=== PATIENT | female | born 1990 ===

== ENCOUNTER 2016-10-21 12:53 | Inpatient (IN) | payer MEDICAID, OTHER ==
--- NOTE | 2016-10-21 13:12 | ED PDOC ---
HPI: Psych/Substance Abuse Time Seen by Provider: 10/21/16 13:01 Chief Complaint (Nursing): Psychiatric Evaluation Chief Complaint (Provider): EDP History Per: Patient, EMS Additional Complaint(s): Patient arrives via ambulance for crisis evaluation. Patient was pulled over by Police and the car she was driving was stolen. She was brought to police precinct and her arrest was processed. EMS then brought patient to ED for psych eval as she is displaying bizarre behavior. Upon arrival patient is not allowing for vital signs to be obtained and she is not answering any questions. Past Medical History Reviewed: Historical Data - Medical History PMH: Anxiety, Bipolar Disorder, Paranoia, Schizophrenia - Family History Family History: States: No Known Family Hx - Living Arrangements Living Arrangements: With Family - Home Medications Home Medications: Ambulatory Orders Medication Instructions Recorded LORazepam [Ativan] 0.5 mg PO BID #30 tab 09/28/15 Sneads Carbonate [Sneads 300 mg PO TID #21 cap 09/28/15 Carbonate 300MG] Risperidone [Risperdal M-TAB] 3 mg PO AMHS #45 odt 09/28/15 - Allergies Allergies/Adverse Reactions: Allergies Allergy/AdvReac Type Severity Reaction Status Date / Time No Known Allergies Allergy Verified 10/21/16 12:55 Review of Systems ROS Statement: Except As Marked, All Systems Reviewed And Found Negative Psych: Positive for: Other (EDP) Physical Exam - Reviewed Nursing Documentation Reviewed: Yes Vital Signs Reviewed: Yes - Physical Exam Appears: Positive for: Well, Non-toxic, No Acute Distress Skin: Negative for: Rash Eye Exam: Positive for: Normal appearance, EOMI, PERRL Cardiovascular/Chest: Positive for: Regular Rate, Rhythm Respiratory: Positive for: Normal Breath Sounds Extremity: Positive for: Normal ROM Neurologic/Psych: Positive for: Alert, Oriented, Mood/Affect (bizarre affect, does not answer questions appropriately) - Laboratory Results Result Diagrams: 10/21/16 15:35 10/21/16 15:35 - ECG O2 Sat by Pulse Oximetry: 98 Pulse Ox Interpretation: Normal Medical Decision Making Medical Decision Makin25 year old EDP Plan: Admit to ED observation 1:1 bedside observation CBC CMP BAL UDS UA Crisis eval ED OBSERVATION Date of observation admission: 10/21/16 Time of observation admission: 13:13 - Observation admission statement Patient is being placed in observation because:: Acute psychosis, EDP - Goals of Observation Goals of observation are:: Monitor patient for her safety and safety of ED staff, pending crisis eval - Progress Note Progress Note: 10/21/16 13:20 Patient arrives via ambulance, she is yelling at ED staff and refusing to change into gowns. Patient yells louder every time someone tries to talk to her. Patient was placed in 4 point restraints for her safety and the safety of ED staff. She was medicated with 2 mg IM ativan and 5 mg IM haldol. 10/21/16 14:20 Patient is asleep, arousable, vital signs stable, no airway compromise, restraints removed. 10/21/16 15:10 Patient is calm and cooperative, states she feels sleepy, vital signs are stable 10/21/16 17:45 Patient is asleep, arousable, vital signs are stable 10/21/16 19:06 Patient was seen at bedside by crisis counselor. As per counselor and psychiatrist emissions testing and repair technician, Dr. Ratliff, patient does meet criteria for admission. She agrees to stay and signed herself in. 10/21/16 20:33 Patient is medically stable for psychiatric admission Disposition - Clinical Impression Clinical Impression: Schizophrenia - Patient ED Disposition Is Patient to be Admitted: Yes - Disposition Disposition Time: 20:33 Condition: FAIR - Pt Status Changed To: Hospital Disposition Of: Inpatient - Admit Certification Admit to Inpatient:: After my assessment, the patient will require hospitalization for at least two midnights. This is because of the severity of symptoms shown, intensity of services needed, and/or the medical risk in this patient being treated as an outpatient. - POA Present On Arrival: None Results - Lab Results Lab Results: 10/21/16 10/21/16 10/21/16 19:58 19:58 15:35 WBC RBC Hgb Hct MCV MCH MCHC RDW Plt Count MPV Neut % (Auto) Lymph % (Auto) Larue % (Auto) Eos % (Auto) Baso % (Auto) Neut # Lymph # Larue # Eos # Baso # Sodium 143 Potassium 4.1 Chloride 106 Carbon Dioxide 26 Anion Gap 15 BUN 11 Creatinine 0.7 Est GFR ( Amer) > 60 Est GFR (Non-Af Amer) > 60 Random Glucose 97 Calcium 9.3 Total Bilirubin 0.2 AST 24 ALT 29 Alkaline Phosphatase 58 Total Protein 7.7 Albumin 4.2 Globulin 3.5 Albumin/Globulin Ratio 1.2 Urine Color Yellow Urine Clarity Cloudy Urine pH 6.0 Ur Specific [place] 1.030 Urine Protein 30 Urine Glucose (UA) Neg Urine Ketones Negative Urine Blood Negative Urine Nitrate Negative Urine Bilirubin Negative Urine Urobilinogen 0.2-1.0 Ur Leukocyte Esterase Trace Urine RBC (Auto) 3 Urine Microscopic WBC 3 Ur Squamous Epith Cells 2 Urine Bacteria Rare Urine Opiates Screen Negative Urine Methadone Screen Negative Ur Barbiturates Screen Negative Ur Phencyclidine Scrn Negative Ur Amphetamines Screen Negative U Benzodiazepines Scrn Negative U Oth Cocaine Metabols Negative U Cannabinoids Screen Positive H Alcohol, Quantitative < 10 10/21/16 15:35 WBC 7.5 RBC 4.03 Hgb 11.8 L Hct 35.4 MCV 88.0 MCH 29.2 MCHC 33.2 RDW 14.1 Plt Count 235 MPV 9.0 Neut % (Auto) 52.6 Lymph % (Auto) 35.7 Larue % (Auto) 9.4 Eos % (Auto) 1.5 Baso % (Auto) 0.8 Neut # 4.0 Lymph # 2.7 Larue # 0.7 Eos # 0.1 Baso # 0.1 Sodium Potassium Chloride Carbon Dioxide Anion Gap BUN Creatinine Est GFR ( Amer) Est GFR (Non-Af Amer) Random Glucose Calcium Total Bilirubin AST ALT Alkaline Phosphatase Total Protein Albumin Globulin Albumin/Globulin Ratio Urine Color Urine Clarity Urine pH Ur Specific [place] Urine Protein Urine Glucose (UA) Urine Ketones Urine Blood Urine Nitrate Urine Bilirubin Urine Urobilinogen Ur Leukocyte Esterase Urine RBC (Auto) Urine Microscopic WBC Ur Squamous Epith Cells Urine Bacteria Urine Opiates Screen Urine Methadone Screen Ur Barbiturates Screen Ur Phencyclidine Scrn Ur Amphetamines Screen U Benzodiazepines Scrn U Oth Cocaine Metabols U Cannabinoids Screen Alcohol, Quantitative
[2016-10-21 15:46] LABS: BASO # 0.1 K/uL (0.0-0.2); BASO % 0.8 % (0.0-2.0); EOS # 0.1 K/uL (0.0-0.7); EOS % 1.5 % (0.0-4.0); HEMOGLOBIN 11.8 g/dL (12.0-16.0); LYMPH # 2.7 K/uL (1.0-4.3); LYMPH % 35.7 % (20.0-40.0); MEAN CORPUSCULAR HEMOGLOBIN 29.2 pg (27.0-31.0); MEAN CORPUSCULAR HGB CONC 33.2 g/dL (33.0-37.0); MONO # 0.7 K/uL (0.0-0.8); MONO % 9.4 % (0.0-10.0); NEUT % 52.6 % (50.0-75.0); NRBC % 0.1 % (0.0-0.0); RBC 4.03 Mil/uL (3.80-5.20); RED CELL DISTRIBUTION WIDTH 14.1 % (11.5-14.5); WHITE BLOOD COUNT 7.5 K/uL (4.8-10.8)
[2016-10-21 16:05] LABS: ALB/GLOB RATIO 1.2 (1.0-2.1); ALBUMIN 4.2 g/dL (3.5-5.0); ALT/SGPT 29 U/L (9-52); AST/SGOT 24 U/L (14-36); BLOOD UREA NITROGEN 11 mg/dl (7-17); CALCIUM 9.3 mg/dL (8.4-10.2); GFR AFRICAN-AMERICAN > 60; GFR NON-AFRICAN AMERICAN > 60
[2016-10-21 20:14] LABS: SQUAMOUS EPITHIAL 2 /hpf (0-5); URINE BACTERIA RARE (<OCC); URINE BILIRUBIN NEGATIVE (NEGATIVE); URINE BLOOD NEGATIVE (NEGATIVE); URINE CLARITY CLOUDY (Clear); URINE COLOR YELLOW (YELLOW); URINE GLUCOSE (UA) NEG (Normal); URINE LEUKOCYTE ESTERASE TRACE Leu/uL (Negative); URINE NITRATE NEGATIVE (NEGATIVE); URINE PROTEIN 30 mg/dL (NEGATIVE); URINE UROBILINOGEN 0.2-1.0 mg/dL (0.2-1.0)
[2016-10-21 20:17] LABS: BARBITURATES, UR NEGATIVE (NEGATIVE); BENZODIAZEPINES, UR NEGATIVE (NEGATIVE); OPIATES, UR NEGATIVE (NEGATIVE); PHENCYCLIDINE, UR NEGATIVE (NEGATIVE)
[2016-10-21 20:35] VITALS: O2SAT 98
[2016-10-21] MEDS ORDERED: Alum-Mag Hydrox-Simethicone Susp (30 mL) PO PRN (21:36)
[2016-10-21] MEDS ORDERED: Magnesium Hydroxide Susp 30 ml UD PO PRN (21:36)
[2016-10-21] MEDS ORDERED: DiphenhydrAMINE 50 mg/ml Inj IM PRN ×2 (21:36→21:41)
[2016-10-21] MEDS ORDERED: DiphenhydrAMINE 50 mg/ml Inj ONE (21:47)
[2016-10-21 22:34] VITALS: RESP 20
--- NOTE | 2016-10-22 08:45 | PCM.PSYCH ---
Initial Psychiatric Evaluation - Initial Psychiatric Evaluation Type of Admission: Voluntary Legal Status: Capacity Chief Complaint (in patient's own words): i just need to rest, i was exhausted Patient's Reaction to Hospitalization: ambivalent History of Present Illness and Precipitating Events: 25 yo female with history of schizoaffective disorder who was brought to the ER by police after driving stolen vehicle. she was bizarre and combative in the ER and allowed to sign into the hospital. upon arrival to the 3np floor she was combative and threatening/attempting to strike the staff and rn on the unit. she is currently on a 1:1 supervision. she states she is only here because of bringing herself into the ER because she was exhausted. she states she was not sleeping and feels "high" she states "i am the most intelligent person in the world and I need to sleep" she states she will not take lithium/depakote or risperdal. she states- "give me what i got last night, that helps- i want benadryl, ativan and haldol." initially she states she is "excited about my discharge" but then she agrees to stay for "a few days" she states she was at [facility] recently after being transferred there from another facility. she states she may have ICMS, but "i don't want that anymore." she is vague about other events leading up to the hospitalization and cannot states where she lives or if she gets any outpt treatment. Current Medications: Active Medications Generic Name Dose Route Start Last Admin Trade Name Freq PRN Reason Stop Dose Admin Acetaminophen 650 mg 10/21/16 21:36 Tylenol 325mg Tab PO Q4 PRN pain 1-7,headache,dizziness Al Hydrox/Mg Hydrox/Simethicone 30 ml 10/21/16 21:36 Maalox Plus 30 Ml PO Q4 PRN Dyspepsia Diphenhydramine HCl 50 mg 10/21/16 21:36 10/21/16 22:00 Benadryl IM 50 mg Q6 PRN Administration Extrapyramidal S/S Unable PO Diphenhydramine HCl 50 mg 10/21/16 21:36 Benadryl PO Q6 PRN Extrapyramidal Symptoms Diphenhydramine HCl 50 mg 10/21/16 22:15 Benadryl PO HS PRN Sleep Diphenhydramine HCl 25 mg 10/22/16 09:00 Benadryl PO BID CLARITA Haloperidol 5 mg 10/21/16 21:36 Haldol PO Q4 PRN Agitation Haloperidol 5 mg 10/22/16 09:00 Haldol PO BID CLARITA Haloperidol Lactate 5 mg 10/21/16 21:36 10/21/16 22:00 Haldol IM 5 mg Q4 PRN Administration Agitation, Unable to Take PO Lorazepam 2 mg 10/21/16 21:41 Ativan PO Q4 PRN Anxiety/Agitation Lorazepam 2 mg 10/21/16 21:36 10/21/16 22:00 Ativan IM 2 mg Q4 PRN Administration Anxiety/Agitation,Unable PO Lorazepam 1 mg 10/22/16 09:00 Ativan PO TID CLARITA Magnesium Hydroxide 30 ml 10/21/16 21:36 Milk Of Magnesia PO HS PRN Constipation last known meds- risperdal, lithium. pt may have been getting risperdal consta recently per chart Past Psychiatric History - Past Psychiatric History Previous Treatment History: Inpatient Prior Professional Help: multiple voluntary/involuntary admissions History of Abuse: denies at this time History of ETOH/Drug Use: "i smoke pot, that's all you will find" denies other substance use History of Family Illness: denies Pertinent Medical Hx (Current Medical&Sleep Prob, Allergies): Allergies Allergy/AdvReac Type Severity Reaction Status Date / Time No Known Allergies Allergy Verified 10/21/16 12:55 LORazepam [Ativan] 0.5 mg PO BID #30 tab 09/28/15 Force Carbonate [Force Carbonate 300MG] 300 mg PO TID #21 cap 09/28/15 Risperidone [Risperdal M-TAB] 3 mg PO AMHS #45 odt 09/28/15 Review of Systems - Psychiatric Psychiatric: As Per HPI, Abnormal Sleep Pattern, Behavioral Changes, Difficulty Concentrating, Irritability, Mood Swings Additional comments: denies a/v hallucinations at this time Mental Status Examination - Personal Presentation Personal Presentation: Looks stated age Additional comments: unkempt - Affect Affect: Broad - Motor Activity Motor Activity: Calm - Reliability in Providing Information Reliability in Providing Information: Poor, due to alteration in thoughts, Poor , due to altered mood - Speech Speech: Organized - Mood Mood: Euphoric - Formal Thought Process Formal Thought Process: Delusions, Paranoia, Loosening of associations, Flight of ideas - Hallucinations/Delusions Delusions: Granduer - Obsessions/Compulsions Obsessions: No Compulsions: No - Cognitive Functions Orientation: Person, Place, Situation, Time Sensorium: Alert Attention/Concentration: Easily distracted Abstract Thinking: [place] Estimate of Intelligence: Average Judgement: Intact, as evidence by: Insight regarding need for hospitalization Memory: Recent impaired, as evidenced by: Other (not accurately portraying recent events) - Risk Risk: Suicidal (denies any plans or intent currently), Homicidal (aggressive behaviors on unit), Diminished functioning - Strength & Assets Inventory Strength & Assets Inventory: Life experience - Limitations Limitations: Other (non-adherence) DSM 5 DX - DSM 5 DSM 5 Diagnosis: schizoaffective disorder, bipolar type - Recommended/Plan of Treatment Treatment Recommendations and Plan of Treatment: admit to 3np for safety and observation gather collateral information provide supportive therapy adjust medications- will start haldol/ativan/benadryl at pt's request. will try to add a mood stabilizer and or replace haldol with risperdal. hospitalist consult disposition planning Projected ELOS: 3-5 days Prognosis: fair Discharge Plan and Discharge Criteria: may need screening for involuntary hospitalization if aggression continues - Smoking Cessation Smoking Cessation Initiated: No Reason for not providing: declines
[2016-10-22 09:17] VITALS: BP 134/81; PULSE 98; TEMP 96.8
--- NOTE | 2016-10-23 09:34 | PCM.PYCHPN ---
Psychiatric Progress Note - Psychiatric Progress Note Patient seen today, length of contact: i am the one who decides Patient Chief Complaint: i like the medications Problems Identified/Issues Discussed: pt initially refused meds this am, but then took. her thought are disorganized and she is expressing ambivalence about taking meds and staying in the hospital. she told the RN that she wants to take the medications sleep so she doesn't hear the voices. she denies side effects. Medication Change: No Medical Record Reviewed: Yes Mental Status Examination - Cognitive Function Orientation: Person, Place, Situation, Time Memory: Intact Attention: Poor Concentration: Poor Association: Loose Fund of Knowledge: WNL Decription of patient's judgement and insights: superficial insight - Mood Mood: Anxious - Affect Affect: Broad - Speech Speech: Loud - Formal Thought Process Formal Thought Process: Delusions, Paranoia, Loosening of associations Psychotic Thoughts and Behaviors: pt paranoid "why do you want to make everyone happy but me" - Suicidal Ideation Suicidal Ideation: No - Homicidal Ideation Homicidal Ideation: No Goal/Treatment Plan - Goal/Treatment Plan Need for Continued Stay: Remain at risks for inpatient hospitalization, Discharge may exacerbated symptoms, Severe functional impairment Progress Toward Problem(s) and Goals/Treatment Plan: schizoaffective disorder, bipolar will continue current treatment t/c increasing haldol to 5/10mg discontinue 1:1 supervision disposition planning Estimated Date of D/C: 10/28/16
--- NOTE | 2016-10-23 19:51 | CP.PCM.CON ---
History of Present Illness - History of Present Illness History of Present Illness: ATTEMPTED TO SEE PATIENT, REFUSES TO ANSWER QUESTIONS OR HAVE PHYSICAL EXAM AT THIS TIME. DISCUSSED WITH NURSING STAFF. Past Patient History - Past Social History Smoking Status: unobtainab - CARDIAC Hx Cardiac Disorders: No Hx Hypertension: No - PULMONARY Hx Respiratory Disorders: No Hx Tuberculosis: No - NEUROLOGICAL Hx Neurological Disorder: No Hx Seizures: No - HEENT Hx HEENT Problems: No - RENAL Hx Chronic Kidney Disease: No - ENDOCRINE/METABOLIC Hx Endocrine Disorders: No - HEMATOLOGICAL/ONCOLOGICAL Hx Blood Disorders: No Hx Human Immunodeficiency Virus (HIV): No - INTEGUMENTARY Hx Dermatological Problems: No - MUSCULOSKELETAL/RHEUMATOLOGICAL Hx Musculoskeletal Disorders: No - GASTROINTESTINAL Hx Gastrointestinal Disorders: No - GENITOURINARY/GYNECOLOGICAL Hx Genitourinary Disorders: No Hx Sexually Transmitted Disorders: No - PSYCHIATRIC Hx Anxiety: Yes Hx Bipolar Disorder: Yes Hx Schizophrenia: Yes Hx Substance Use: No (pt denied) - SURGICAL HISTORY Hx Surgeries: No - ANESTHESIA Hx Anesthesia: No Meds Allergies/Adverse Reactions: Allergies Allergy/AdvReac Type Severity Reaction Status Date / Time No Known Allergies Allergy Verified 10/21/16 12:55 - Medications Medications: Current Medications Acetaminophen (Tylenol 325mg Tab) 650 mg PO Q4 PRN PRN Reason: pain 1-7,headache,dizziness Al Hydrox/Mg Hydrox/Simethicone (Maalox Plus 30 Ml) 30 ml PO Q4 PRN PRN Reason: Dyspepsia Diphenhydramine HCl (Benadryl) 50 mg IM Q6 PRN PRN Reason: Extrapyramidal S/S Unable PO Last Admin: 10/21/16 22:00 Dose: 50 mg Diphenhydramine HCl (Benadryl) 50 mg PO Q6 PRN PRN Reason: Extrapyramidal Symptoms Diphenhydramine HCl (Benadryl) 50 mg PO HS PRN PRN Reason: Sleep Last Admin: 10/22/16 22:14 Dose: 50 mg Diphenhydramine HCl (Benadryl) 25 mg PO BID CLARITA Last Admin: 10/23/16 17:43 Dose: 25 mg Haloperidol (Haldol) 5 mg PO Q4 PRN PRN Reason: Agitation Last Admin: 10/22/16 22:14 Dose: 5 mg Haloperidol (Haldol) 5 mg PO AMHS CLARITA Haloperidol Lactate (Haldol) 5 mg IM Q4 PRN PRN Reason: Agitation, Unable to Take PO Last Admin: 10/21/16 22:00 Dose: 5 mg Lorazepam (Ativan) 2 mg IM Q4 PRN PRN Reason: Anxiety/Agitation,Unable PO Last Admin: 10/21/16 22:00 Dose: 2 mg Lorazepam (Ativan) 1 mg PO AMHS CLARITA Lorazepam (Ativan) 1 mg PO Q4 PRN PRN Reason: Anxiety Magnesium Hydroxide (Milk Of Magnesia) 30 ml PO HS PRN PRN Reason: Constipation Results - Vital Signs Recent Vital Signs: Last Vital Signs Temp 96.8 F L 10/22/16 09:16 Pulse 98 H 10/22/16 09:16 Resp 20 10/22/16 09:16 BP 134/81 10/22/16 09:16 Pulse Ox 98 10/21/16 20:34 - Labs Result Diagrams: 10/21/16 15:35 10/21/16 15:35
--- NOTE | 2016-10-24 12:53 | PCM.PYCHDC ---
Mental Status Examination - Mental Status Examination Orientation: Person, Place, Situation, Time Memory: Intact Mood: Anxious Affect: Blunted Speech: Appropriate Attention: WNL Concentration: WNL Association: Loose Fund of Knowledge: WNL Formal Thought Process: Paranoia, Loosening of associations Description of patient's judgement and insight: superficial insight Psychotic Thoughts and Behaviors: pt paranoid, irritable, disorganized thoughts Suicidal Ideation: No Current Homicidal Ideation?: No Plan: pt is denying any suicidal or homicidal thoughts Discharge Summary - Discharge Note Reason for Hospitalization: pt brought to ER by police for erratic behavior Psychiatric History (includes Medical, Family, Personal Hx): history of schizoaffective disorder Consultations:: List each consultation separately and include: 1. Reason for request. 2. Findings. 3. Follow-up Consultations: seen by hospitalist Summary of Hospital Course include:: 1. Description of specific treatment plan utilized for patients during their course of treatmen. 2. Summarize the time- course for resolution of acute symptoms and/or regressed behaviors. 3. Describe issues identified and worked on during hospitalization. 4. Describe medication utilized. 5. Describe medical problems identified and treated. 6. Reassessment of suicide risk Summary of Hospital Course: 25 yo female with history of schizoaffective disorder who was brought to the ER by police after driving stolen vehicle. she was bizarre and combative in the ER and allowed to sign into the hospital. upon arrival to the 3np floor she was combative and threatening/attempting to strike the staff and rn on the unit. she is currently on a 1:1 supervision. she states she is only here because of bringing herself into the ER because she was exhausted. she states she was not sleeping and feels "high" she states "i am the most intelligent person in the world and I need to sleep" she states she will not take lithium/depakote or risperdal. she states- "give me what i got last night, that helps- i want benadryl, ativan and haldol." initially she states she is "excited about my discharge" but then she agrees to stay for "a few days" she states she was at [facility] recently after being transferred there from another facility. she states she may have ICMS, but "i don't want that anymore." she is vague about other events leading up to the hospitalization and cannot states where she lives or if she gets any outpt treatment. hospital course pt was admitted to [facility] and oriented to the unit. pt was placed on routine safety protocols. pt was started on medications she requested- haldol and benadryl/ativan- as she stated it helped her sleep and stay calm. she took medications as prescribed and allowed sw to contact her bf who was supportive of pt's discharge. she demanded to go home. pt remained disorganized in terms of her thoughts, but was calm and accepting redirections. she was agreeing to take medications and follow up with treatment. we discussed leaving the hospital against medical advice and informed the pt the benefits of staying would be further titration of medications and stabilization of her mood/ psychosis and the risks were continued unstable mood/thoughts/behaviors and chance of rehospitalization. pt chose to leave the hospital against medical advice and was given prescriptions for 2 weeks with one refill of her medications. - Final Diagnosis (DSM 5) Condition upon Discharge: FAIR DSM 5: schizoaffective disorder, bipolar type Disposition: AGAINST MEDICAL ADVICE Follow-up Treatment Plan: follow up with aftercare as directed take medications as prescribed do not use alcohol, tobacco or other illicit substances call 911 if any suicidal or homicidal thoughts Prescriptions/Medication Reconciliation: DiphenhydrAMINE [Benadryl] 25 mg PO BID #30 cap Haloperidol [Haldol] 5 mg PO AMHS #30 tab LORazepam [Ativan] 1 mg PO AMHS #30 tab - Smoking Cessation Smoking Cessation Medication prescribed: No Reason for not providing: declines - Antipsychotic Medications Pt discharged on 2 or more routine antipsychotic medications: No
== END 2016-10-24 13:45 | disposition left against medical advice (07) | DRG 430 ==
LOC: H.ER 12:53 → H.EROBSV 13:10 → OBSVTOIN 20:07 → H.ERHOLD 20:18 → H.PSYCH 21:25
PROVIDERS: ADMIT Psychiatry & Neurology Psychiatry; ATTEND Psychiatry & Neurology Psychiatry
PROC: GZHZZZZ Group Psychotherapy (ICD-10-PCS; principal; 2016-10-21)
PROC: GZ58ZZZ Individual Psychotherapy, Cognitive-Behavioral (ICD-10-PCS; 2016-10-21)
DX: F25.0 Schizoaffective disorder, bipolar type (principal); F12.10 Cannabis abuse, uncomplicated; F41.9 Anxiety disorder, unspecified; Z78.1 Physical restraint status; Z79.899 Other long term (current) drug therapy

== ENCOUNTER 2017-07-04 11:24 | Emergency (ER) | payer MEDICAID, OTHER ==
[2017-07-04 11:57] VITALS: BP 139/90; PULSE 90; RESP 20; TEMP 98; O2SAT 98
--- NOTE | 2017-07-04 12:17 | ED PDOC ---
HPI: Psych/Substance Abuse Time Seen by Provider: 07/04/17 11:30 Chief Complaint (Nursing): Psychiatric Evaluation Chief Complaint (Provider): psych eval History Per: Patient (26 y/o female h/o mental illness on depakote sent by police for psych evaluation. patient states she is homeless and was knocking on mother's door yesterday but her mother did not open. Police was called and patient was placed in police custody. Patient denies any hallucinations/SI/HI. Has no complaints. Denies any alcohol or drug abuse.) Past Medical History Reviewed: Historical Data, Nursing Documentation, Vital Signs Vital Signs: Last Vital Signs Temp 98 F 07/04/17 11:54 Pulse 90 07/04/17 11:54 Resp 20 07/04/17 11:54 BP 139/90 07/04/17 11:54 Pulse Ox 98 07/04/17 11:54 - Medical History PMH: Anxiety, Bipolar Disorder, Paranoia, Schizophrenia Denies: Diabetes, Hepatitis, HIV, HTN, Chronic Kidney Disease, Seizures, Sexually Transmitted Disease - Family History Family History: States: Unknown Family Hx - Immunization History Hx Tetanus Toxoid Vaccination: No Hx Influenza Vaccination: No Hx Pneumococcal Vaccination: No - Home Medications Home Medications: Ambulatory Orders Medication Instructions Recorded No Known Home Med 10/27/16 - Allergies Allergies/Adverse Reactions: Allergies Allergy/AdvReac Type Severity Reaction Status Date / Time No Known Allergies Allergy Verified 07/04/17 11:57 Review of Systems ROS Statement: Except As Marked, All Systems Reviewed And Found Negative Physical Exam - Reviewed Nursing Documentation Reviewed: Yes Vital Signs Reviewed: Yes - Physical Exam Appears: Positive for: Well, Non-toxic, No Acute Distress Head Exam: Positive for: ATRAUMATIC, NORMAL INSPECTION, NORMOCEPHALIC Skin: Positive for: Normal Color, Warm, DRY Eye Exam: Positive for: EOMI, Normal appearance, PERRL ENT: Positive for: Normal ENT Inspection Neck: Positive for: Normal, Painless ROM Cardiovascular/Chest: Positive for: Regular Rate, Rhythm Respiratory: Positive for: CNT, Normal Breath Sounds Gastrointestinal/Abdominal: Positive for: Normal Exam, Bowel Sounds, Soft Back: Positive for: Normal Inspection Extremity: Positive for: Normal ROM Neurologic/Psych: Positive for: Alert, Oriented - ECG O2 Sat by Pulse Oximetry: 98 - Progress ED Course And Treament: Seen by crisis team Has h/o Schizophrenia. Diagnosis of adjustment disorder Cleared by Dr. Cohen for d/c home. Disposition - Clinical Impression Clinical Impression: Adjustment disorder - Patient ED Disposition Is Patient to be Admitted: No - Disposition Referrals: [facility] [Outside] Disposition: Routine/Home Disposition Time: 12:28 Condition: FAIR Instructions: Adjustment Disorder Forms: Application Craft (Welsh)
== END 2017-07-04 12:49 | disposition home or self-care (01) ==
LOC: H.ER 11:24
DX: F43.22 Adjustment disorder with anxiety (principal); F20.9 Schizophrenia, unspecified; F31.9 Bipolar disorder, unspecified; Z59.0 Homelessness

== ENCOUNTER 2017-07-22 17:27 | Emergency (ER) | payer SELFPAY ==
[2017-07-22 17:34] VITALS: O2SAT 99
--- NOTE | 2017-07-22 18:05 | ED PDOC ---
HPI: Psych/Substance Abuse Time Seen by Provider: 07/22/17 17:57 Chief Complaint (Nursing): Psychiatric Evaluation Chief Complaint (Provider): Crisis History Per: Patient History/Exam Limitations: no limitations Onset/Duration Of Symptoms: Days (today) Additional Complaint(s): Pt. found being bizarre on street so police brought pt. to the ED. Pt. not cooperative in ER. Yelling. States her girlfriend is Tahira. She needs depacote. Talking in tangents. Aggressive. Denies any drugs or etoh. Not suicidal or homicidal. Past Medical History Reviewed: Nursing Documentation, Vital Signs Vital Signs: Last Vital Signs Temp 98.0 F 07/22/17 17:28 Pulse 88 07/22/17 17:28 Resp 18 07/22/17 17:28 BP Pulse Ox 99 07/22/17 17:28 - Medical History PMH: Anxiety, Bipolar Disorder, Paranoia, Schizophrenia Denies: Diabetes, Hepatitis, HIV, HTN, Chronic Kidney Disease, Seizures, Sexually Transmitted Disease - Family History Family History: States: Unknown Family Hx - Immunization History Hx Tetanus Toxoid Vaccination: No Hx Influenza Vaccination: No Hx Pneumococcal Vaccination: No - Home Medications Home Medications: Ambulatory Orders Medication Instructions Recorded No Known Home Med 10/27/16 - Allergies Allergies/Adverse Reactions: Allergies Allergy/AdvReac Type Severity Reaction Status Date / Time No Known Allergies Allergy Verified 07/22/17 17:28 Review of Systems ROS Statement: Except As Marked, All Systems Reviewed And Found Negative Psych: Positive for: Psychosis Physical Exam - Reviewed Nursing Documentation Reviewed: Yes Vital Signs Reviewed: Yes - Physical Exam Appears: Positive for: Non-toxic, No Acute Distress Head Exam: Positive for: ATRAUMATIC, NORMAL INSPECTION, NORMOCEPHALIC Skin: Positive for: Normal Color, Warm, DRY Eye Exam: Positive for: EOMI, Normal appearance, PERRL ENT: Positive for: Normal ENT Inspection Neck: Positive for: Normal, Painless ROM Cardiovascular/Chest: Positive for: Regular Rate, Rhythm Respiratory: Positive for: CNT, Normal Breath Sounds Gastrointestinal/Abdominal: Positive for: Normal Exam, Soft. Negative for: Tenderness Back: Positive for: Normal Inspection. Negative for: L CVA Tenderness, R CVA Tenderness Extremity: Positive for: Normal ROM. Negative for: Tenderness, Pedal Edema Neurologic/Psych: Positive for: Alert, Oriented. Negative for: Motor/Sensory Deficits, Facial Droop - ECG O2 Sat by Pulse Oximetry: 99 Pulse Ox Interpretation: Normal - Progress ED Course And Treament: 1809: Will need possible ativan and restraints if pt. has aggressive and psychotic episode. Crisis aware of case. 1854: Stable. Dr. Sims to fu on labs and crisis. Disposition - Clinical Impression Clinical Impression: Psychosis - Patient ED Disposition Is Patient to be Admitted: Transfer of Care - Disposition Disposition Time: 18:56 Condition: FAIR Patient Signed Over To: Willis Sims
[2017-07-22 18:29] VITALS: BP 117/88; PULSE 90; RESP 20; TEMP 98.5
--- NOTE | 2017-07-22 19:36 | ED PDOC ---
- ECG O2 Sat by Pulse Oximetry: 99 Medical Decision Making Medical Decision Makin:30 Transfer of care to Dr. Sims pending labs, crisis evaluation, and re- evaluation. 21:45 Crisis evaluated and determined patient is stable for discharge home after d/w Dr Sandoval. As per crisis patient is at base line function. Diagnosis is schizophrenia Scribe Attestation: Documented by Jassi Townsend acting as a scribe for Willis Sims MD. Scribe Attestation: All medical record entries made by the Scribe were at my direction and personally dictated by me. I have reviewed the chart and agree that the record accurately reflects my personal performance of the history, physical exam, medical decision making, and the department course for this patient. I have also personally directed, reviewed, and agree with the discharge instructions and disposition. Disposition - Clinical Impression Clinical Impression: Schizophrenia - POA Present On Arrival: None - Disposition Disposition: Routine/Home Disposition Time: 21:35 Condition: STABLE Instructions: Schizophrenia Forms: [employer] (Faroese)
[2017-07-22 20:45] LABS: BARBITURATES, UR NEGATIVE (NEGATIVE); BENZODIAZEPINES, UR NEGATIVE (NEGATIVE); OPIATES, UR NEGATIVE (NEGATIVE); PHENCYCLIDINE, UR NEGATIVE (NEGATIVE)
== END 2017-07-22 21:50 | disposition home or self-care (01) ==
LOC: H.ER 17:27
DX: F20.9 Schizophrenia, unspecified (principal); F31.9 Bipolar disorder, unspecified; F41.9 Anxiety disorder, unspecified
CPT/HCPCS: 81025; 99284; G0480

== ENCOUNTER 2017-07-25 22:36 | Emergency (ER) | payer SELFPAY ==
[2017-07-25 22:43] VITALS: TEMP 98.5
--- NOTE | 2017-07-26 00:31 | ED PDOC ---
HPI: Psych/Substance Abuse Time Seen by Provider: 07/25/17 23:02 Chief Complaint (Nursing): Psychiatric Evaluation Chief Complaint (Provider): In police custody - Denies complaint ED Caveat: Acuity of Condition History Per: Patient History/Exam Limitations: no limitations Additional Complaint(s): 26 yo female with history of schizophrenia presents with police for evaluation. PT denies SI/HI. Pt states she has been taking her medication for schizophrenia. Pt denies pain, SOB, N/V/D, etc Past Medical History Reviewed: Historical Data, Nursing Documentation, Vital Signs Vital Signs: Last Vital Signs Temp 98.5 F 07/25/17 22:38 Pulse 134 H 07/25/17 22:38 Resp 18 07/25/17 22:38 BP 147/93 H 07/25/17 22:38 Pulse Ox 99 07/25/17 22:38 - Medical History PMH: Anxiety, Bipolar Disorder, Paranoia, Schizophrenia Denies: Diabetes, Hepatitis, HIV, HTN, Chronic Kidney Disease, Seizures, Sexually Transmitted Disease - Surgical History Surgical History: No Surg Hx - Family History Family History: States: Unknown Family Hx - Living Arrangements Living Arrangements: With Family - Social History Current smoker - smoking cessation education provided: No - Immunization History Hx Tetanus Toxoid Vaccination: No Hx Influenza Vaccination: No Hx Pneumococcal Vaccination: No - Home Medications Home Medications: Ambulatory Orders Medication Instructions Recorded No Known Home Med 10/27/16 - Allergies Allergies/Adverse Reactions: Allergies Allergy/AdvReac Type Severity Reaction Status Date / Time No Known Allergies Allergy Verified 07/22/17 17:28 Review of Systems ROS Statement: Except As Marked, All Systems Reviewed And Found Negative Constitutional: Negative for: Fever, Chills Cardiovascular: Negative for: Chest Pain Respiratory: Negative for: Cough Gastrointestinal: Negative for: Nausea, Vomiting, Abdominal Pain Genitourinary Female: Negative for: Dysuria Physical Exam - Reviewed Nursing Documentation Reviewed: Yes Vital Signs Reviewed: Yes - Physical Exam Appears: Positive for: Well, Non-toxic, No Acute Distress Head Exam: Positive for: ATRAUMATIC, NORMAL INSPECTION, NORMOCEPHALIC Skin: Positive for: Normal Color, Warm, DRY Eye Exam: Positive for: Normal appearance ENT: Positive for: Normal ENT Inspection Neck: Positive for: Normal, Painless ROM Cardiovascular/Chest: Positive for: Regular Rate, Rhythm Respiratory: Positive for: Normal Breath Sounds. Negative for: Accessory Muscle Use, Respiratory Distress Gastrointestinal/Abdominal: Positive for: Normal Exam, Soft Back: Positive for: Normal Inspection Extremity: Positive for: Normal ROM Neurologic/Psych: Positive for: Alert, Oriented - ECG O2 Sat by Pulse Oximetry: 99 Medical Decision Making Medical Decision Making: HR 89 on discharge. Disposition - Clinical Impression Clinical Impression: Schizophrenia - Patient ED Disposition Is Patient to be Admitted: No Counseled Patient/Family Regarding: Diagnosis, Need For Followup - Disposition Disposition: Routine/Home Disposition Time: 00:29 Condition: GOOD Additional Instructions: PT is medically and psychiatrically stable for incarceration. Instructions: Schizophrenia (DC)
[2017-07-26 00:49] VITALS: BP 127/84; RESP 16
[2017-07-26 00:51] VITALS: O2SAT 99
[2017-07-26 00:58] VITALS: PULSE 89
== END 2017-07-26 00:56 ==
LOC: H.ER 22:36
DX: F20.9 Schizophrenia, unspecified (principal); F31.9 Bipolar disorder, unspecified; F41.9 Anxiety disorder, unspecified

== ENCOUNTER 2017-10-11 12:05 | Emergency (ER) | payer MEDICAID ==
[2017-10-11 12:10] VITALS: BP 127/91; RESP 19; TEMP 97.9; O2SAT 100
--- NOTE | 2017-10-11 12:35 | ED PDOC ---
HPI: Psych/Substance Abuse Time Seen by Provider: 10/11/17 12:15 Chief Complaint (Nursing): Psychiatric Evaluation Chief Complaint (Provider): Psychiatric Evaluation History Per: Patient, EMS History/Exam Limitations: no limitations Onset/Duration Of Symptoms: Mins (prior to arrival) Current Symptoms Are (Timing): Still Present Additional Complaint(s): 26 year old female presents to the ED via EMS for a psychiatric evaluation after police saw her acting bizarre and speaking nonsensically in the streets. Patient is requesting [place], Depakote, and Xanax for her depression upon arrival, but otherwise denies suicidal / homicidal ideation, and visual / auditory hallucinations. She has no physical complaints at this time. No reports of trauma at this time. LNMP: 1 month ago PMD: none provided Past Medical History Reviewed: Historical Data, Nursing Documentation, Vital Signs Vital Signs: Last Vital Signs Temp 97.9 F 10/11/17 12:08 Pulse 120 H 10/11/17 12:08 Resp 19 10/11/17 12:08 BP 127/91 H 10/11/17 12:08 Pulse Ox 100 10/11/17 12:08 - Medical History PMH: Anxiety, Bipolar Disorder, Depression, Paranoia, Schizophrenia - Surgical History Surgical History: No Surg Hx - Family History Family History: States: Unknown Family Hx - Social History Current smoker - smoking cessation education provided: Yes SMOKER/PACKS PER DAY:: 1 Alcohol: Social Drugs: Denies - Home Medications Home Medications: Ambulatory Orders Medication Instructions Recorded No Known Home Med 10/27/16 - Allergies Allergies/Adverse Reactions: Allergies Allergy/AdvReac Type Severity Reaction Status Date / Time No Known Allergies Allergy Verified 10/11/17 12:08 Review of Systems ROS Statement: Except As Marked, All Systems Reviewed And Found Negative Psych: Negative for: Suicidal ideation (and homicidal), Other (visual / auditory hallucinations) Physical Exam - Reviewed Nursing Documentation Reviewed: Yes Vital Signs Reviewed: Yes - Physical Exam Comments: GENERAL APPEARANCE: Patient is awake, alert, oriented x 3, in no acute distress. Dancing in ED exam room. SKIN: Warm, dry; (-) cyanosis EYES: (-) conjunctival pallor, (-) scleral icterus, (-) nystagmus. ENMT: Mucous membranes moist. Airway patent: (-) stridor. NECK: Supple, FROM HEART AND CARDIOVASCULAR: (-) irregularity; (-) murmur, (-) gallop. CHEST AND RESPIRATORY: (-) rales, (-) rhonchi, (-) wheezes; breath sounds equal. Respirations even and nonlabored. ABDOMEN: Soft, (-) distention, (-) tenderness, (-) guarding. NEURO AND PSYCH: Mental status as above. Patient is hyperactive, with tangent thoughts. Answers questions inappropriately. Pupils equal and reactive; EOMI; (- ) facial asymmetry; uvula midline. Gait steady. - ECG O2 Sat by Pulse Oximetry: 100 (RA) Pulse Ox Interpretation: Normal Medical Decision Making Medical Decision Making: Time: 12:20 Initial Impression: psychiatric evaluation Initial Plan: --Crisis evaluation --1:1 Observation --Re-evaluation 12:45 Per crisis evaluation, patient is stable for discharge, diagnosed with schizoaffective disorder per Dr. Plummer. Patient advised to follow up at [facility] as directed by [facility]. Repeat HR: 98 On re-exam, neck is supple, lungs CTA, cardiac RRR, abdomen is soft and non- tender, neuro exam shows no focal findings. VSS, stable for discharge. Diagnostic results d/w the patient in great detail. Dx of schizoaffective disorder d/w the patient. Based on history, exam and diagnostic results plan will be for discharge and outpatient follow up with [facility] as arranged by [facility]. Advised to follow up with primary care physician/clinic in 1-2 days without fail. Return to the emergency room at any time for any new or worsening symptoms. Patient states she fully agrees with and understands discharge instructions. States that she agrees with the plan and disposition. Verbalized and repeated discharge instructions and plan. I have given the patient opportunity to ask any additional questions. Scribe Attestation: Documented by Annemarie Buitrago, acting as a scribe for Ira Betts PA-C. Provider Scribe Attestation: All medical record entries made by the Scribe were at my direction and personally dictated by me. I have reviewed the chart and agree that the record accurately reflects my personal performance of the history, physical exam, medical decision making, and the department course for this patient. I have also personally directed, reviewed, and agree with the discharge instructions and disposition. Disposition - Clinical Impression Clinical Impression: Schizoaffective disorder, Psychiatric disorder - Patient ED Disposition Is Patient to be Admitted: No Counseled Patient/Family Regarding: Diagnosis, Need For Followup - Disposition Referrals: [facility] [Outside] Disposition: Routine/Home Disposition Time: 12:47 Condition: FAIR Additional Instructions: FOLLOW UP DIRECTED BY CRISIS AT [facility]. RETURN TO ED WITH ANY NEW OR WORSENING SYMPTOMS. Instructions: Schizoaffective Disorder Forms: [employer] (Kiswahili) Print Language: ARMENIAN - POA Present On Arrival: None
[2017-10-11 13:24] VITALS: PULSE 98
== END 2017-10-11 13:23 | disposition home or self-care (01) ==
LOC: H.ER 12:05
DX: F20.9 Schizophrenia, unspecified (principal)

== ENCOUNTER 2018-01-01 02:19 | Inpatient (IN) | payer SELFPAY ==
[2018-01-01 02:29] VITALS: O2SAT 97
--- NOTE | 2018-01-01 02:40 | ED PDOC ---
HPI: Psych/Substance Abuse Time Seen by Provider: 01/01/18 02:20 Chief Complaint (Nursing): Psychiatric Evaluation Chief Complaint (Provider): Psychiatric Evaluation History Per: Patient History/Exam Limitations: no limitations Additional Complaint(s): 27 years old female with history of paranoid schizophrenia and substance abuse presents to ER for psychiatric evaluation. Patient reports she hear voices that keep telling her to kill herself and she tells these voices that she does not want to kill herself. She states these voices are persisting. PMD: non provided Past Medical History Reviewed: Historical Data, Nursing Documentation, Vital Signs Vital Signs: Last Vital Signs Temp 98.9 F 01/01/18 02:23 Pulse 100 H 01/01/18 02:23 Resp 16 01/01/18 02:23 BP 146/89 01/01/18 02:23 Pulse Ox 97 01/01/18 02:23 - Medical History PMH: Anxiety, Bipolar Disorder, Depression, Paranoia, Schizophrenia Denies: Diabetes, Hepatitis, HIV, HTN, Chronic Kidney Disease, Seizures, Sexually Transmitted Disease - Surgical History Surgical History: No Surg Hx - Family History Family History: States: Unknown Family Hx - Social History Current smoker - smoking cessation education provided: Yes (10 cigarettes a day) Drugs: Cocaine - Immunization History Hx Tetanus Toxoid Vaccination: No Hx Influenza Vaccination: No Hx Pneumococcal Vaccination: No - Home Medications Home Medications: Ambulatory Orders Medication Instructions Recorded Divalproex [Depakote ER] 1,250 mg PO HS 01/01/18 Risperidone 1 mg PO DAILY 01/01/18 - Allergies Allergies/Adverse Reactions: Allergies Allergy/AdvReac Type Severity Reaction Status Date / Time haloperidol [From Haldol] Allergy RASH Verified 01/01/18 02:21 lorazepam [From Ativan] Allergy RASH Verified 01/01/18 02:22 Review of Systems ROS Statement: Except As Marked, All Systems Reviewed And Found Negative Psych: Positive for: Suicidal ideation Physical Exam - Physical Exam Appears: Positive for: Well, Non-toxic Head Exam: Positive for: ATRAUMATIC, NORMAL INSPECTION, NORMOCEPHALIC Skin: Positive for: Normal Color, Warm, Dry Eye Exam: Positive for: Normal appearance ENT: Positive for: Normal ENT Inspection Neck: Positive for: Normal Cardiovascular/Chest: Positive for: Regular Rate, Rhythm Respiratory: Positive for: Normal Breath Sounds Gastrointestinal/Abdominal: Positive for: Normal Exam Extremity: Positive for: Normal ROM Neurologic/Psych: Positive for: Alert, Oriented - Laboratory Results Result Diagrams: 01/01/18 03:00 01/01/18 03:00 - ECG ECG Rhythm: Positive for: Sinus Rhythm (Normal) Rate: 95 O2 Sat by Pulse Oximetry: 97 (RA) Pulse Ox Interpretation: Normal Medical Decision Making Medical Decision Making: Time: 232 Initial Plan: suicidal ideation, voices --Labs --Crisis evaluation --Chest X-Ray urine shows pos marijuana 0354 Patient is medically cleared for crisis. 05 Patient diagnosed with Schizophrenia, to be admitted to psych floor as per intake worker. pt aware/agreeable 0617 Chest x-ray on my view shows no significant abnormality. Scribe Attestation: Documented by Helen Alonzo, acting as a scribe for Trista Anguiano MD. Provider Scribe Attestation: All medical record entries made by the Scribe were at my direction and personally dictated by me. I have reviewed the chart and agree that the record accurately reflects my personal performance of the history, physical exam, medical decision making, and the department course for this patient. I have also personally directed, reviewed, and agree with the discharge instructions and disposition. Disposition - Clinical Impression Clinical Impression: Paranoid schizophrenia - Patient ED Disposition Is Patient to be Admitted: Yes Counseled Patient/Family Regarding: Studies Performed, Diagnosis - Disposition Disposition Time: 05:15 Condition: STABLE
[2018-01-01 03:12] LABS: BASO # 0.1 K/uL (0.0-0.2); BASO % 1.1 % (0.0-2.0); EOS # 0.2 K/uL (0.0-0.7); EOS % 2.2 % (0.0-4.0); HEMOGLOBIN 13.3 g/dL (12.0-16.0); LYMPH # 2.6 K/uL (1.0-4.3); LYMPH % 32.1 % (20.0-40.0); MEAN CELL VOLUME 87.2 fl (81.0-99.0); MEAN CORPUSCULAR HEMOGLOBIN 30.1 pg (27.0-31.0); MEAN CORPUSCULAR HGB CONC 34.6 g/dL (33.0-37.0); MEAN PLATELET VOLUME 9.1 fl (7.2-11.7); MONO # 0.8 K/uL (0.0-0.8); MONO % 9.8 % (0.0-10.0); NEUT # 4.5 K/uL (1.8-7.0); NEUT % 54.8 % (50.0-75.0); NRBC % 0.1 % (0.0-0.0); RBC 4.4 Mil/uL (3.80-5.20); RED CELL DISTRIBUTION WIDTH 13.5 % (11.5-14.5); WHITE BLOOD COUNT 8.2 K/uL (4.8-10.8)
[2018-01-01 03:23] LABS: ALB/GLOB RATIO 1.2 (1.0-2.1); ALBUMIN 4.2 g/dL (3.5-5.0); ALT/SGPT 16 U/L (9-52); AST/SGOT 27 U/L (14-36); BILIRUBIN,DIRECT 0.2 mg/ml (0.0-0.4); BLOOD UREA NITROGEN 16 mg/dl (7-17); CALCIUM 9.5 mg/dL (8.4-10.2); GFR NON-AFRICAN AMERICAN > 60
[2018-01-01 03:33] LABS: SQUAMOUS EPITHIAL 5 /hpf (0-5); URINE BILIRUBIN NEGATIVE (NEGATIVE); URINE BLOOD NEGATIVE (NEGATIVE); URINE CLARITY CLOUDY (Clear); URINE COLOR YELLOW (YELLOW); URINE GLUCOSE (UA) >=500 mg/dL (Normal); URINE LEUKOCYTE ESTERASE TRACE Leu/uL (Negative); URINE PROTEIN NEGATIVE (NEGATIVE); URINE UROBILINOGEN 0.2-1.0 mg/dL (0.2-1.0)
[2018-01-01 03:38] LABS: BARBITURATES, UR NEGATIVE (NEGATIVE); BENZODIAZEPINES, UR NEGATIVE (NEGATIVE); OPIATES, UR NEGATIVE (NEGATIVE); PHENCYCLIDINE, UR NEGATIVE (NEGATIVE)
[2018-01-01 03:57] LABS: ACETAMINOPHEN < 10.0 ug/ml (10.0-30.0); SALICYLATE < 1.0 mg/dl
[2018-01-01 04:02] LABS: VALPROIC ACID 62.7 ug/mL (50.0-100.0)
[2018-01-01] MEDS ORDERED: Magnesium Hydroxide Susp 30 ml UD PO PRN (06:54)
--- NOTE | 2018-01-01 06:59 | PCM.BM ---
Treatment Plan Problems - Problems identified on initial assessmt Command/Auditory Hallucinations Date Initiated: 01/01/18 Time Initiated: 06:58 Assessment reference: NA Status: Active Altered Thought Process Date Initiated: 01/01/18 Assessment reference: NA Status: Active Treatment assets and liabiliti Patient Assests: physically healthy, negotiates basic needs, cognitively intact Patient Liabilities: relationship conflicts, substance abuse - Milieu Protocol Maintain good personal hygiene: daily Encourage regular showers, daily Remind patient to perform daily oral care, daily Assist patient to perform ADL's Conduct patient checks and document Observation sheet: Q15 minutes Maintain personal safety: every shift Educate patient to report safety concerns to staff, every shift Monitor environment for contraband/sharps Medication safety: Monitor for expected outcome, potential side effects: every shift, Assess barriers to learning: every shift, Assess readiness for medication education: every shift
[2018-01-01 07:42] LABS: HDL CHOLESTEROL 38 MG/DL (30-70)
[2018-01-01 07:53] LABS: LDL CHOLESTEROL 118 mg/dL (0-129)
--- NOTE | 2018-01-01 11:27 | RAD ---
Date of service: 01/01/2018 HISTORY: clearnce COMPARISON: Chest radiograph dated 02/04/2016. FINDINGS: LUNGS: No active pulmonary disease. PLEURA: No significant pleural effusion identified, no pneumothorax apparent. CARDIOVASCULAR: Normal. OSSEOUS STRUCTURES: No significant abnormalities. VISUALIZED UPPER ABDOMEN: Normal. OTHER FINDINGS: None. IMPRESSION: No active disease.
--- NOTE | 2018-01-01 18:38 | PCM.PSYCH ---
Initial Psychiatric Evaluation - Initial Psychiatric Evaluation Chief Complaint (in patient's own words): came to emergency room to come home currently believes is home Patient's Reaction to Hospitalization: pt signed in voluntarily defers medications other than prn lorazepam or thorazine, pt was noted to have verbal altercation with peer today, pt noted to be loud about unit, received prn then seen in room by this insurance underwriter sales with female staff member. pt seen laying in bed, lowers sheet to only expose, face, reports that was in [facility], looking for housing, when attempting to obtain further clinical assessment pt statues only wants prn lorazepam and thorazine, pt reports that " i have told you that I am in my house why do you keep talking about hospital"-when asked as to why she might need prn thorazine or lorazepam states does not have mental illness-leave the f--k alone". attempted to obtain again defers information defers need to take standing medication. History of Present Illness and Precipitating Events: see above Current Medications: Active Medications Generic Name Dose Route Start Last Admin Trade Name Freq PRN Reason Stop Dose Admin Acetaminophen 650 mg 01/01/18 06:54 Tylenol 325mg Tab PO Q4 PRN Pain, moderate (4-7) Chlorpromazine 25 mg 01/01/18 14:34 Thorazine IM Q6 PRN Agitation Chlorpromazine 25 mg 01/01/18 14:35 Thorazine PO Q6 PRN Agitation Diphenhydramine HCl 50 mg 01/01/18 14:36 Benadryl PO Q6 PRN Agitation Lorazepam 2 mg 01/01/18 18:25 Ativan PO Q6 PRN anxiety Lorazepam 2 mg 01/01/18 18:28 Ativan IM Q6 PRN severe anxiety/agitation Magnesium Hydroxide 30 ml 01/01/18 06:54 Milk Of Magnesia PO HS PRN Constipation Past Psychiatric History - Past Psychiatric History Previous Treatment History: Inpatient Prior Professional Help: various inpt admission including most recently [facility] Prior Psychiatric Treatment: defers giving detail- History of Abuse: defers History of ETOH/Drug Use: defers History of Family Illness: defers Pertinent Medical Hx (Current Medical&Sleep Prob, Allergies): Allergies Allergy/AdvReac Type Severity Reaction Status Date / Time haloperidol [From Haldol] Allergy RASH Verified 01/01/18 02:21 lorazepam [From Ativan] Allergy RASH Verified 01/01/18 02:22 Divalproex [Depakote ER] 1,250 mg PO HS 01/01/18 Risperidone 1 mg PO DAILY 01/01/18 Review of Systems - Psychiatric Psychiatric: Auditory Hallucinations, Suicidal Ideation Additional comments: command hallucinations to take life noted in er upon unit pt defers giving det ail Mental Status Examination - Personal Presentation Personal Presentation: Looks older than stated age - Affect Affect: Constricted - Motor Activity Additional comments: irritable - Reliability in Providing Information Reliability in Providing Information: Poor, due to alteration in thoughts - Speech Additional comments: gives minimal details dismissive of staff/s questions for clinical details - Formal Thought Process Formal Thought Process: Hallucinations, Delusions, Paranoia - Hallucinations/Delusions Hallucinations: Auditory - Cognitive Functions Orientation: Person Sensorium: Alert Judgement: Imparied, as evidence by: Other - Risk Risk: Suicidal Additional comments: just leave me alone in my house DSM 5 DX - DSM 5 DSM 5 Diagnosis: r/o schizophrenia paranoid type - Recommended/Plan of Treatment Treatment Recommendations and Plan of Treatment: inpt admission per attending vital signs and clinical observation per clinical status and protocol prns per unit protocol (thorazine in place of haldol) hospitalist consult risperdal m tab 2mg po hs depakote er 1250mg po hs(pt with negative urine today er) no prn lorazepam pt reportedly allergic to IM and not po pt defers medications will have pt screened as does give clinical information, poor insight and judgment Projected ELOS: 2-5 days Prognosis: guarded Discharge Plan and Discharge Criteria: safety - Smoking Cessation Smoking Cessation Initiated: No Reason for not providing: defers detail may change mind
--- NOTE | 2018-01-01 19:31 | CARD ---
APPROVED REPORT Date of service: 01/01/2018 EKG Measurement Heart [id number] <Conclusion> Normal sinus rhythm prolonged QT abnormal ecg
[2018-01-02] MEDS: Divalproex 500 mg ER (ONCE DAILY formulation) PO SCH ×2 (06:57→21:21)
[2018-01-02] MEDS: Divalproex 250 mg ER (ONCE DAILY formulation) PO SCH ×2 (06:57→21:22)
[2018-01-02] MEDS: Risperidone M TAB 2 MG PO SCH ×2 (06:58→21:21)
[2018-01-02 09:14] VITALS: BP 125/81; PULSE 81; RESP 19; TEMP 96.9
--- NOTE | 2018-01-02 09:46 | PCM.PYCHPN ---
Psychiatric Progress Note - Psychiatric Progress Note Patient seen today, length of contact: pt seen and evaluated. Patient Chief Complaint: pt has remained very disorganized and paranoid and delusional ,escalating to become more threatening and refusing all meds and treatment and need screening for involuntary committment. Medication Change: No Medical Record Reviewed: Yes Mental Status Examination - Cognitive Function Orientation: Person Memory: Intact Attention: Poor Concentration: Poor Association: Loose Fund of Knowledge: Poor - Mood Mood: Anxious - Affect Affect: Constricted - Formal Thought Process Formal Thought Process: Hallucinations, Delusions, Paranoia - Homicidal Ideation Homicidal Ideation: No Goal/Treatment Plan - Goal/Treatment Plan Progress Toward Problem(s) and Goals/Treatment Plan: continue to offer meds to pt and engage in therapy. Have pt screened and [place] [facility] [place].
--- NOTE | 2018-01-02 13:58 | CP.PCM.CON ---
History of Present Illness - History of Present Illness History of Present Illness: medical evaluation of psychiatric patient. CC: reports no medical/physical complaints HPI:27 yo F reports no medical physical complaints. She is refusing examination saying that she was examined and had a regular check up this year and did not have any medical conditions. PMH: none PSH: denies FH: denies SH: denies tobacco, ETOH, IVDA (cocaine is positive in UDS) Meds: reviewed Allergies: haldol, ativan Reviewed old records. Review of Systems - Review of Systems All systems: reviewed and no additional remarkable complaints except Review of Systems: in hpi Past Patient History - Infectious Disease Hx of Infectious Diseases: None - Past Social History Drugs: Cocaine - CARDIAC Hx Cardiac Disorders: No - PULMONARY Hx Respiratory Disorders: No - NEUROLOGICAL Hx Neurological Disorder: No - HEENT Hx HEENT Problems: No - RENAL Hx Chronic Kidney Disease: No - ENDOCRINE/METABOLIC Hx Endocrine Disorders: No - HEMATOLOGICAL/ONCOLOGICAL Hx Blood Disorders: No - INTEGUMENTARY Hx Dermatological Problems: No - MUSCULOSKELETAL/RHEUMATOLOGICAL Hx Musculoskeletal Disorders: No - GASTROINTESTINAL Hx Gastrointestinal Disorders: No - GENITOURINARY/GYNECOLOGICAL Hx Genitourinary Disorders: No - PSYCHIATRIC Hx Bipolar Disorder: Yes Hx Depression: Yes Hx Schizophrenia: Yes Hx Substance Use: No (yes marijuana as per records) - SURGICAL HISTORY Hx Surgeries: No - ANESTHESIA Hx Anesthesia: No Meds Allergies/Adverse Reactions: Allergies Allergy/AdvReac Type Severity Reaction Status Date / Time haloperidol [From Haldol] Allergy RASH Verified 01/01/18 02:21 lorazepam [From Ativan] Allergy RASH Verified 01/01/18 02:22 - Medications Medications: Current Medications Acetaminophen (Tylenol 325mg Tab) 650 mg PO Q4 PRN PRN Reason: Pain, moderate (4-7) Chlorpromazine (Thorazine) 25 mg IM Q6 PRN PRN Reason: Agitation Chlorpromazine (Thorazine) 25 mg PO Q6 PRN PRN Reason: Agitation Last Admin: 01/01/18 15:35 Dose: 25 mg Diphenhydramine HCl (Benadryl) 50 mg PO Q6 PRN PRN Reason: Agitation Last Admin: 01/01/18 15:35 Dose: 50 mg Divalproex Sodium (Depakote Er(Once Daily)) 1,000 mg PO HS [facility] Last Admin: 01/02/18 06:57 Dose: Not Given Divalproex Sodium (Depakote Er(Once Daily)) 250 mg PO HS [facility] Last Admin: 01/02/18 06:57 Dose: Not Given Magnesium Hydroxide (Milk Of Magnesia) 30 ml PO HS PRN PRN Reason: Constipation Risperidone (Risperdal M-Tab) 2 mg PO HS [facility] Last Admin: 01/02/18 06:58 Dose: Not Given Physical Exam - Constitutional Appears: Well, Non-toxic - Head Exam Head Exam: ATRAUMATIC, NORMAL INSPECTION, NORMOCEPHALIC - Eye Exam Eye Exam: Normal appearance - Neurological Exam Neurological exam: Alert, Oriented x3 - Psychiatric Exam Psychiatric exam: Anxious - Additional Findings Additional findings: REFUSED physical exam Results - Vital Signs Recent Vital Signs: Last Vital Signs Temp 96.9 F L 01/02/18 09:14 Pulse 81 01/02/18 09:14 Resp 19 01/02/18 09:14 BP 125/81 01/02/18 09:14 Pulse Ox 97 01/01/18 06:30 - Labs Result Diagrams: 01/01/18 03:00 01/01/18 03:00 Assessment & Plan - Assessment and Plan (Free Text) Assessment: 27 yo f with no pmh. Continue psychiatric care.
== END 2018-01-03 05:01 | DRG 885 ==
LOC: H.ER 02:19 → H.ERHOLD 05:25 → H.PSYCH 06:47
PROVIDERS: ADMIT Psychiatry & Neurology Psychiatry; ATTEND Psychiatry & Neurology Psychiatry
PROC: GZ51ZZZ Individual Psychotherapy, Behavioral (ICD-10-PCS; principal; 2018-01-01)
DX: F20.9 Schizophrenia, unspecified (principal); F31.9 Bipolar disorder, unspecified; F32.9 Major depressive disorder, single episode, unspecified; F14.10 Cocaine abuse, uncomplicated

== ENCOUNTER 2018-02-18 05:09 | Emergency (ER) | payer SELFPAY ==
[2018-02-18 05:19] VITALS: BP 141/97; PULSE 98; RESP 18; TEMP 98.8; O2SAT 100
--- NOTE | 2018-02-18 05:47 | ED PDOC ---
HPI: Psych/Substance Abuse Time Seen by Provider: 02/18/18 05:15 Chief Complaint (Nursing): Psychiatric Evaluation Chief Complaint (Provider): Psychiatric Evaluation History Per: Patient History/Exam Limitations: no limitations Additional Complaint(s): Lili Phillips is a 27 year old female with past medical history of schizoaffective disorder, who presents to the emergency department for psychiatric evaluation. Patient states to have no specific complaint and has no suicidal or homicidal ideation. Patient reports she wants to sleep in ER. She reports she is homeless and does not want to be in her snf. Patient wants to be in psychiatric frazier. PMD: No provider Past Medical History Reviewed: Historical Data, Nursing Documentation, Vital Signs Vital Signs: Last Vital Signs Temp 98.8 F 02/18/18 05:15 Pulse 98 H 02/18/18 05:15 Resp 18 02/18/18 05:15 BP 141/97 H 02/18/18 05:15 Pulse Ox 100 02/18/18 05:15 - Medical History PMH: Anxiety, Bipolar Disorder, Depression, Paranoia, Schizophrenia Denies: Diabetes, Hepatitis, HIV, HTN, Chronic Kidney Disease, Seizures, Sexually Transmitted Disease - Surgical History Surgical History: No Surg Hx - Family History Family History: States: Unknown Family Hx - Immunization History Hx Tetanus Toxoid Vaccination: No Hx Influenza Vaccination: No Hx Pneumococcal Vaccination: No - Home Medications Home Medications: Ambulatory Orders Medication Instructions Recorded Divalproex [Depakote ER] 1,250 mg PO HS 01/01/18 Risperidone 1 mg PO DAILY 01/01/18 - Allergies Allergies/Adverse Reactions: Allergies Allergy/AdvReac Type Severity Reaction Status Date / Time haloperidol [From Haldol] Allergy RASH Verified 01/01/18 02:21 lorazepam [From Ativan] Allergy RASH Verified 01/01/18 02:22 Review of Systems ROS Statement: Except As Marked, All Systems Reviewed And Found Negative Psych: Negative for: Suicidal ideation (homicidal ideation) Physical Exam - Reviewed Nursing Documentation Reviewed: Yes Vital Signs Reviewed: Yes - Physical Exam Appears: Positive for: Non-toxic, No Acute Distress Head Exam: Positive for: ATRAUMATIC, NORMOCEPHALIC Skin: Positive for: Normal Color Respiratory: Negative for: Respiratory Distress Extremity: Positive for: Normal ROM Neurologic/Psych: Positive for: Alert, Oriented (x3) - ECG O2 Sat by Pulse Oximetry: 100 (RA) Pulse Ox Interpretation: Normal Medical Decision Making Medical Decision Making: Initial Time: 05:15 Initial Impression: psychiatric evaluation Initial Plan: --Crisis evaluation Patient is cleared by crisis. Patient is sleeping comfortably in the bed. Scribe Attestation: Documented by Timothy Ma, acting as a scribe for Wong Lynn MD. Provider Scribe Attestation: All medical record entries made by the Scribe were at my direction and personally dictated by me. I have reviewed the chart and agree that the record accurately reflects my personal performance of the history, physical exam, medical decision making, and the department course for this patient. I have also personally directed, reviewed, and agree with the discharge instructions and disposition. Disposition - Clinical Impression Clinical Impression: Depression, Homelessness - Patient ED Disposition Is Patient to be Admitted: No Doctor Will See Patient In The: Office Counseled Patient/Family Regarding: Studies Performed, Diagnosis, Need For Followup - Disposition Referrals: [facility] [Outside] Disposition: Routine/Home Disposition Time: 06:10 Condition: GOOD Instructions: Depression, Adult (DC)
== END 2018-02-18 06:55 | disposition home or self-care (01) ==
LOC: H.ER 05:09
DX: F32.9 Major depressive disorder, single episode, unspecified (principal); Z59.0 Homelessness

== ENCOUNTER 2018-02-18 23:30 | Emergency (ER) | payer SELFPAY ==
[2018-02-18 23:36] VITALS: TEMP 98.2; O2SAT 98
--- NOTE | 2018-02-19 00:57 | ED PDOC ---
HPI: Psych/Substance Abuse Time Seen by Provider: 02/18/18 23:55 Chief Complaint (Nursing): Psychiatric Evaluation Chief Complaint (Provider): Psychiatric Evaluation History Per: Patient History/Exam Limitations: no limitations Associated Symptoms: Agitation Additional Complaint(s): 27 years old female with history of bipolar disorder and anxiety sent to ER from prison. Patient comes with agitated behavior, dancing in the room and not cooperative. She drank something she states it was water. PMD: non provided Past Medical History Reviewed: Historical Data, Nursing Documentation, Vital Signs Vital Signs: Last Vital Signs Temp 98.2 F 02/18/18 23:32 Pulse 105 H 02/18/18 23:32 Resp 16 02/18/18 23:32 BP 132/93 H 02/18/18 23:32 Pulse Ox 98 02/18/18 23:32 - Medical History PMH: Anxiety, Bipolar Disorder, Depression, Paranoia, Schizophrenia Denies: Diabetes, Hepatitis, HIV, HTN, Chronic Kidney Disease, Seizures, Sexually Transmitted Disease - Surgical History Surgical History: No Surg Hx - Family History Family History: States: Unknown Family Hx - Social History Current smoker - smoking cessation education provided: No (Unknown) Alcohol: None (as per record) Drugs: Cannabis (Marijuana, as per record) - Immunization History Hx Tetanus Toxoid Vaccination: No Hx Influenza Vaccination: No Hx Pneumococcal Vaccination: No - Home Medications Home Medications: Ambulatory Orders Medication Instructions Recorded Divalproex [Depakote ER] 1,250 mg PO HS 01/01/18 Risperidone 1 mg PO DAILY 01/01/18 - Allergies Allergies/Adverse Reactions: Allergies Allergy/AdvReac Type Severity Reaction Status Date / Time haloperidol [From Haldol] Allergy RASH Verified 01/01/18 02:21 lorazepam [From Ativan] Allergy RASH Verified 01/01/18 02:22 Review of Systems ROS Statement: Except As Marked, All Systems Reviewed And Found Negative Psych: Positive for: Anxiety, Other (Agitation) Physical Exam - Reviewed Nursing Documentation Reviewed: Yes Vital Signs Reviewed: Yes - Physical Exam Appears: Positive for: Non-toxic, No Acute Distress Head Exam: Positive for: ATRAUMATIC, NORMOCEPHALIC Skin: Positive for: Normal Color, Warm, Dry Cardiovascular/Chest: Positive for: Regular Rate, Rhythm. Negative for: Murmur Respiratory: Positive for: Normal Breath Sounds. Negative for: Wheezing Gastrointestinal/Abdominal: Positive for: Normal Exam, Soft. Negative for: Tenderness Extremity: Positive for: Normal ROM. Negative for: Tenderness, Swelling Neurologic/Psych: Positive for: Alert, Oriented (x3) - ECG O2 Sat by Pulse Oximetry: 98 (RA) Pulse Ox Interpretation: Normal Medical Decision Making Medical Decision Making: Time: 14 Initial Plan: --EKG --Acetaminophen --Alcohol serum --CMP --Urine drug screen --Salicylate --CBC --Ativan 2 mg IM --Geodon 20 mg IM --Haldol 5 mg IM --1:1 Observation --Urinalysis Patient refused labs, agreed to crisis evaluation. She is calmer now. [id number] Patient cleared by crisis and stable for discharge, diagnosed with anxiety by Dr. Cohen. Scribe Attestation: Documented by Helen Alonzo, acting as a scribe for Trista Anguiano MD. Provider Scribe Attestation: All medical record entries made by the Scribe were at my direction and personally dictated by me. I have reviewed the chart and agree that the record accurately reflects my personal performance of the history, physical exam, medical decision making, and the department course for this patient. I have also personally directed, reviewed, and agree with the discharge instructions and disposition. Disposition - Clinical Impression Clinical Impression: Anxiety - Patient ED Disposition Is Patient to be Admitted: No - Disposition Disposition: Routine/Home Disposition Time: 03:08 Condition: STABLE Forms: [employer] (Ukrainian)
[2018-02-19 05:38] VITALS: BP 126/82; PULSE 84; RESP 17
== END 2018-02-19 04:54 | disposition home or self-care (01) ==
LOC: H.ER 23:30
DX: F41.9 Anxiety disorder, unspecified (principal)

== ENCOUNTER 2018-03-04 02:12 | Emergency (ER) | payer SELFPAY ==
[2018-03-04] MEDS ORDERED: guaiFENesin DM 100 mg-10 mg/5 ml UD PO STA (02:58)
--- NOTE | 2018-03-04 03:01 | ED PDOC ---
HPI: Psych/Substance Abuse Time Seen by Provider: 03/04/18 02:34 Chief Complaint (Nursing): Psychiatric Evaluation Chief Complaint (Provider): Psychiatric Evaluation History Per: Patient, EMS History/Exam Limitations: no limitations Onset/Duration Of Symptoms: Days (last several) Current Symptoms Are (Timing): Still Present Additional Complaint(s): 27 year old female presents to the ED via EMS for a psychiatric evaluation. Patient reports that she has been feeling depressed the last several days secondary to her recent breakup with her boyfriend and currently being homeless. Additionally, patient notes not taking her Depakote today because she does not know where it is. She further states developing a cough today, but otherwise denies fever, suicidal ideation / homicidal ideation, and visual / auditory hallucinations. Upon patient's arrival, she was uncooperative with staff, refusing to have her vitals taken, however she has since agreed. PMD: none provided Past Medical History Reviewed: Historical Data, Nursing Documentation, Vital Signs Vital Signs: Last Vital Signs Temp 97.8 F 03/04/18 02:50 Pulse 100 H 03/04/18 02:50 Resp 20 03/04/18 02:50 BP 115/74 03/04/18 02:50 Pulse Ox 99 03/04/18 02:50 - Medical History PMH: Anxiety, Bipolar Disorder, Depression, Paranoia, Schizophrenia Denies: Diabetes, Hepatitis, HIV, HTN, Chronic Kidney Disease, Seizures, Sexually Transmitted Disease - Surgical History Surgical History: No Surg Hx - Family History Family History: States: Unknown Family Hx - Living Arrangements Living Arrangements: Other (homeless) - Immunization History Hx Tetanus Toxoid Vaccination: No Hx Influenza Vaccination: No Hx Pneumococcal Vaccination: No - Home Medications Home Medications: Ambulatory Orders Medication Instructions Recorded Divalproex [Depakote ER] 1,250 mg PO HS 01/01/18 Risperidone 1 mg PO DAILY 01/01/18 Benzonatate [Tessalon Perle] 100 mg PO Q8 PRN #10 capsule 03/04/18 - Allergies Allergies/Adverse Reactions: Allergies Allergy/AdvReac Type Severity Reaction Status Date / Time haloperidol [From Haldol] Allergy RASH Verified 01/01/18 02:21 lorazepam [From Ativan] Allergy RASH Verified 01/01/18 02:22 Review of Systems ROS Statement: Except As Marked, All Systems Reviewed And Found Negative Respiratory: Positive for: Cough Psych: Positive for: Depression. Negative for: Suicidal ideation (or homicidal), Other (visual / auditory hallucinations) Physical Exam - Reviewed Nursing Documentation Reviewed: Yes Vital Signs Reviewed: Yes - Physical Exam Appears: Positive for: No Acute Distress Head Exam: Positive for: ATRAUMATIC, NORMOCEPHALIC Skin: Positive for: Normal Color. Negative for: Rash Eye Exam: Positive for: Normal appearance, EOMI, PERRL ENT: Positive for: Normal ENT Inspection Neck: Positive for: Normal, Painless ROM, Supple Cardiovascular/Chest: Positive for: Regular Rate, Rhythm Respiratory: Positive for: Normal Breath Sounds. Negative for: Respiratory Distress Gastrointestinal/Abdominal: Positive for: Normal Exam, Soft. Negative for: Tenderness Back: Positive for: Normal Inspection Extremity: Positive for: Normal ROM Neurologic/Psych: Positive for: Alert (and awake) - ECG O2 Sat by Pulse Oximetry: 99 (RA) Pulse Ox Interpretation: Normal - Progress ED Course And Treament: Pt. evaluated by Kinza FRAGOSO who spoke with Dr. Sandoval and cleared pt. for discharge with outpt f/u. Medical Decision Making Medical Decision Making: Time: 257 Initial Impression: psychiatric evaluation, depression, cough Initial Plan: --Crisis evaluation --Robitussin DM 5ml PO Scribe Attestation: Documented by Annemarie Buitrago, acting as a scribe for Joaquin Alexander PA-C. Provider Scribe Attestation: All medical record entries made by the Scribe were at my direction and personally dictated by me. I have reviewed the chart and agree that the record accurately reflects my personal performance of the history, physical exam, medical decision making, and the department course for this patient. I have also personally directed, reviewed, and agree with the discharge instructions and disposition. Disposition - Clinical Impression Clinical Impression: Cough, Schizoaffective disorder - Patient ED Disposition Is Patient to be Admitted: No - Disposition Referrals: [facility] [Outside] Disposition: Routine/Home Disposition Time: 04:02 Condition: STABLE Additional Instructions: KERRIE GUERRA, thank you for letting us take care of you today. Your provider was Willis Sims MD and you were treated for CRISIS EVAL. The emergency medical care you received today was directed at your acute symptoms. If you were prescribed any medication, please fill it and take as directed. It may take several days for your symptoms to resolve. Return to the Emergency Department if your symptoms worsen, do not improve, or if you have any other problems. Please contact your doctor or call one of the physicians/clinics you have been referred to that are listed on the Patient Visit Information form that is included in your discharge packet. Bring any paperwork you were given at discharge with you along with any medications you are taking to your follow up visit. Our treatment cannot replace ongoing medical care by a primary care provider outside of the emergency department. Thank you for allowing the [facility] team to be part of your care today. If you had an X-Ray or CT scan: A Radiologist will review the ED reading if any change in treatment is needed we will contact you. If you had a blood, urine, or wound culture: It will take several days for the results, if any change in treatment is needed we will contact you. If you had an STI test: It will take 48 hours for the results. Please call after 1 week if you have not heard back. Prescriptions: Benzonatate [Tessalon Perle] 100 mg PO Q8 PRN #10 capsule PRN Reason: Cough Instructions: Schizoaffective Disorder (DC), Viral Upper Respiratory Infection, Adult (DC) Forms: [employer] (Wolof) Print Language: SYRIAC
[2018-03-04 03:12] VITALS: BP 115/74; PULSE 100; RESP 20; O2SAT 99
[2018-03-04] MEDS ORDERED: guaiFENesin 100 mg/5 ml Syrup UD ONE (04:00)
[2018-03-04 06:41] VITALS: TEMP 98.7
== END 2018-03-04 05:25 | disposition home or self-care (01) ==
LOC: H.ER 02:12
DX: F25.9 Schizoaffective disorder, unspecified (principal); R05 Cough; Z59.0 Homelessness